=== PATIENT | female | born 1975 | race Caucasian/White ===

== ENCOUNTER → 2017-02-20 | Outpatient (CLI) | payer BC | LOC: FIMAGING 15:42 | DX: Z12.31 Encounter for screening mammogram for malignant neoplasm of breast (principal) | CPT/HCPCS: G0202 ==

== ENCOUNTER → 2017-03-29 | Outpatient (CLI) | payer BC | LOC: FIMAGING 08:08 | PROVIDERS: ATTEND Obstetrics & Gynecology | DX: D25.0 Submucous leiomyoma of uterus (principal) ==

== ENCOUNTER 2017-04-02 19:14 | Emergency (ER) | payer BC ==
[2017-04-02 19:23] VITALS: O2SAT 95
--- NOTE | 2017-04-02 19:41 | EDPHY ---
H & P Stated Complaint: SOB x 2 weeks, slight cough Time Seen by Provider: 04/02/17 19:23 HPI/ROS: Chief Complaint: Shortness of breath, cough HPI: 42-year-old woman with 2 weeks of shortness of breath with increasing exercise intolerance. Patient has been able to exercise workout and she did run the [employer] yesterday. After ring she was coughing a dry cough and a cough up a little bit of blood. Has had some increasing shortness of breath walking up stairs. No pain. Does not have a history of the same. No leg pain or swelling. No periods of immobility or travel. She does not smoke. No risk factors for coronary artery disease or PE. No fevers or chills. Cough is dry nonproductive and only happens a couple times a week. ROS: 10 point Review of Systems is negative except as noted in the HPI. PMH: Hypothyroidism Medications: Synthroid Allergies: No known drug allergies Social History: No smoking, occasional alcohol, no recreational drug use Family History: CHF on her father side Physical Exam: Gen: Awake, Alert, No Distress HEENT: Nose: no rhinorrhea Eyes: PERRLA, EOMI Mouth: Moist mucosa Neck: Supple, no JVD Chest: nontender, lungs clear to auscultation Heart: S1, S2 normal, no murmur Abd: Soft, non-tender, no guarding Back: no CVA tenderness, no midline tenderness Ext: no edema, non-tender Skin: no rash Neuro: CN II-XII intact, Sensation grossly intact, Strength 5/5 in bilateral upper and lower extremities - Personal History LMP (Females 10-55): 15-21 Days Ago - Medical/Surgical History Hx Asthma: No Hx Chronic Respiratory Disease: No Hx Diabetes: No Hx Cardiac Disease: No Hx Renal Disease: No Hx Cirrhosis: No Hx Alcoholism: No Hx HIV/AIDS: No Hx Splenectomy or Spleen Trauma: No Other PMH: hypothyroid, 2007 breast reduction and abdominalplasty - Social History Smoking Status: Never smoked Constitutional: Initial Vital Signs Temperature (C) 37.1 C 04/02/17 19:21 Heart Rate 79 04/02/17 19:21 Respiratory Rate 18 04/02/17 19:21 Blood Pressure 130/72 H 04/02/17 19:21 O2 Sat (%) 95 04/02/17 19:21 O2 Delivery Mode Room Air Allergies/Adverse Reactions: No Known Allergies Allergy (Verified 04/02/17 19:20) Home Medications: Medication Instructions Recorded Nature Throid 04/02/17 Medical Decision Making - Diagnostics EKG Interpretation: ECG time 7:47 p.m.. Sinus rhythm with a rate of 73, normal axis, normal intervals, no acute ST or T-wave changes. Impression: Normal ECG. Imaging Results: Imaging Impressions Chest/Thorax CTA 04/02/17 20:14 Impression: 1. No evidence of pulmonary embolus using CT protocol. 2. Normal CT chest. Findings discussed with Tommy Pérez MD at 21:29 hour, 04/02/2017. Imaging: Discussed imaging studies w/ manager call Radiologist ED Course/Re-evaluation: ECG normal. Vitals OK. Pt low risk for PE. Will check d-dimer d-dimer elevated, remaining blood tests normal. Will get CTA chest. Pt without complaint. CT scan of the chest is negative for PE per Dr. Mott. Patient is feeling comfortable. Normal vital signs. Normal oxygenation. Will discharge to home with follow-up with primary care physician for further evaluation. No evidence of acute cardiac or respiratory process at this time. - Data Points Laboratory Results: Laboratory Results 04/02/17 19:40 04/02/17 19:40 04/02/17 04/02/17 04/02/17 19:40 19:40 19:40 WBC RBC Hgb Hct MCV MCH MCHC RDW Plt Count MPV Neut % (Auto) Lymph % (Auto) [place] % (Auto) Eos % (Auto) Baso % (Auto) Nucleat RBC Rel Count Absolute Neuts (auto) Absolute Lymphs (auto) Absolute Monos (auto) Absolute Eos (auto) Absolute Basos (auto) Absolute Nucleated RBC Immature Gran % Immature Gran # D-Dimer 0.79 ug/mLFEU H ug/mLFEU (0.00-0.50) Sodium 141 mEq/L mEq/L (134-144) Potassium 4.0 mEq/L mEq/L (3.5-5.2) Chloride 104 mEq/L mEq/L (97-110) Carbon Dioxide 23 mEq/l mEq/l (22-31) Anion Gap 14 mEq/L mEq/L (8-16) BUN 18 mg/dL mg/dL (7-23) Creatinine 0.8 mg/dL mg/dL (0.6-1.0) Estimated GFR > 60 Glucose 97 mg/dL mg/dL (70-100) Calcium 9.1 mg/dL mg/dL (8.5-10.4) Beta HCG, Qual NEGATIVE 04/02/17 19:40 WBC 7.87 10^3/uL 10^3/uL (3.80-9.50) RBC 4.59 10^6/uL 10^6/uL (4.18-5.33) Hgb 13.7 g/dL g/dL (12.6-16.3) Hct 40.3 % % (38.0-47.0) MCV 87.8 fL fL (81.5-99.8) MCH 29.8 pg pg (27.9-34.1) MCHC 34.0 g/dL g/dL (32.4-36.7) RDW 12.7 % % (11.5-15.2) Plt Count 269 10^3/uL 10^3/uL (150-400) MPV 10.0 fL fL (8.7-11.7) Neut % (Auto) 62.8 % % (39.3-74.2) Lymph % (Auto) 24.9 % % (15.0-45.0) [place] % (Auto) 6.2 % % (4.5-13.0) Eos % (Auto) 5.2 % % (0.6-7.6) Baso % (Auto) 0.6 % % (0.3-1.7) Nucleat RBC Rel Count 0.0 % % (0.0-0.2) Absolute Neuts (auto) 4.94 10^3/uL 10^3/uL (1.70-6.50) Absolute Lymphs (auto) 1.96 10^3/uL 10^3/uL (1.00-3.00) Absolute Monos (auto) 0.49 10^3/uL 10^3/uL (0.30-0.80) Absolute Eos (auto) 0.41 10^3/uL H 10^3/uL (0.03-0.40) Absolute Basos (auto) 0.05 10^3/uL 10^3/uL (0.02-0.10) Absolute Nucleated RBC 0.00 10^3/uL 10^3/uL (0-0.01) Immature Gran % 0.3 % % (0.0-1.1) Immature Gran # 0.02 10^3/uL 10^3/uL (0.00-0.10) D-Dimer Sodium Potassium Chloride Carbon Dioxide Anion Gap BUN Creatinine Estimated GFR Glucose Calcium Beta HCG, Qual Departure - Departure Disposition: Home, Routine, Self-Care Clinical Impression: Dyspnea Condition: Good Instructions: Dyspnea (ED) Additional Instructions: Follow up with primary care physician in 3-4 days for further evaluation of her shortness of breath. Return to the emergency depart for increasing shortness of breath, chest pain, worsening cough, fever, chills, or any other concerns. Referrals: Elizabeth Qureshi PA [Primary Care Provider] - As per Instructions
--- NOTE | 2017-04-02 19:50 | CPEKG ---
Heart Rate: 73 RR Interval: 822 P-R Interval: 208 QRSD Interval: 88 QT Interval: 400 QTC Interval: 441 P Molino: 67 QRS Molino: 65 T Wave Molino: 43 EKG Severity - NORMAL ECG - EKG Impression: SINUS RHYTHM Electronically Signed By: Tommy Pérez 02-Apr-2017 21:38:02
[2017-04-02 19:53] LABS: % IMMATURE GRANULYOCYTES 0.3 % (0.0-1.1); ABSOLUTE IMMATURE GRANULOCYTES 0.02 10^3/uL (0.00-0.10); ADD DIFF? NO; ADD MORPH? NO; ADD SCAN? NO; ATYPICAL LYMPHOCYTE FLAG 0 (0-99); FRAGMENT RBC FLAG 0 (0-99); HEMATOCRIT 40.3 % (38.0-47.0); HEMOGLOBIN 13.7 g/dL (12.6-16.3); LEFT SHIFT FLG 0 (0-99); LIPEMIA HEMOLYSIS FLAG 90 (0-99); MEAN CELL HEMOGLOBIN 29.8 pg (27.9-34.1); MEAN CELL VOLUME 87.8 fL (81.5-99.8); PLATELET CLUMPS FLAG 10 (0-99); PLATELET COUNT 269 10^3/uL (150-400); RED BLOOD CELL COUNT 4.59 10^6/uL (4.18-5.33); RED CELL DISTRIBUTION WIDTH 12.7 % (11.5-15.2)
[2017-04-02 20:05] LABS: ANION GAP 14 mEq/L (8-16); CALCIUM 9.1 mg/dL (8.5-10.4); CARBON DIOXIDE 23 mEq/l (22-31); CHLORIDE 104 mEq/L (97-110); CREATININE 0.8 mg/dL (0.6-1.0); GLOMERULAR FILTRATION RATE > 60; GLUCOSE 97 mg/dL (70-100); SODIUM 141 mEq/L (134-144)
[2017-04-02] MEDS ORDERED: IOPAMIDOL (ISOVUE 370) 100 ML BTL IV ONE (20:19)
[2017-04-02] MEDS: PHENAZOPYRIDINE HCL 200 MG TAB PO ONE ×2 (21:56→21:59)
[2017-04-02 23:31] VITALS: BP 126/68; PULSE 72; RESP 16; TEMP 98.6
== END 2017-04-02 21:51 | disposition home or self-care (01) ==
LOC: CED 19:14
DX: R06.00 Dyspnea, unspecified (principal)
CPT/HCPCS: 71275-PO; 80048-PO; 84703-PO; 85025-PO; 85378-PO; Q9967

== ENCOUNTER → 2018-02-11 | Outpatient (CLI) | payer BC | LOC: FIMAGING 16:11 | PROVIDERS: ATTEND Orthopaedic Surgery | DX: M48.061 Spinal stenosis, lumbar region without neurogenic claudication (principal); M47.896 Other spondylosis, lumbar region ==

== ENCOUNTER → 2018-03-20 | Outpatient (CLI) | payer BC | LOC: FIMAGING 15:31 | PROVIDERS: ATTEND Physician Assistant | DX: Z12.31 Encounter for screening mammogram for malignant neoplasm of breast (principal) ==